=== PATIENT | male | born 1985 ===

== ENCOUNTER → 2018-09-25 | Outpatient (CLI) | payer MEDICAID, OTHER ==
[~2018-09-25] MED LIST: IOPAMIDOL (ISOVUE-300) 100 ML BTL ONE
== END ==
LOC: FIMAGING 14:19
PROVIDERS: ATTEND Clinical Nurse Specialist Adult Health
DX: R07.9 Chest pain, unspecified (principal); R91.8 Other nonspecific abnormal finding of lung field
CPT/HCPCS: Q9967